=== PATIENT | female | born 1970 | race African-American/Black ===

== ENCOUNTER → 2019-11-04 | Day surgery (SDC) | payer MEDICARE, OTHER ==
[2019-11-01 11:36] LABS: BASOPHILS # (AUTO) 0.1 (0.0-0.1); BASOPHILS % 0.6 % (0.0-1.0); EOSINOPHILS # (AUTO) 0.1 (0.0-0.4); EOSINOPHILS % 0.8 % (0.0-6.0); HEMATOCRIT 36.3 % (34.2-44.1); HEMOGLOBIN 11.3 g/dL (12.0-16.0); LYMPHOCYTES # (AUTO) 2.6 (1.0-3.2); LYMPHOCYTES % 26.9 % (18.0-39.1); MEAN CORPUSCULAR HEMOGLOBIN 28.7 pg (28-32); MEAN CORPUSCULAR HGB CONC 31.1 g/dL (31-35); MEAN CORPUSCULAR VOLUME 92.1 fL (81-99); MONOCYTES # (AUTO) 0.6 (0.2-0.8); MONOCYTES % 5.8 % (4.4-11.3); NEUTROPHILS # (AUTO) 6.2 (2.1-6.9); NEUTROPHILS % 65.6 % (38.7-80.0); PLATELET COUNT 271 x10e3/uL (140-360); RED BLOOD COUNT 3.94 x10e6/uL (3.6-5.1); RED CELL DISTRIBUTION WIDTH 16.4 % (11.7-14.4)
[~2019-11-04] MED LIST: ATORVASTATIN CA10 MG PO; BENADRYL25 M1 PO; BREO ELLIPTA 11 EACH INH; CETIRIZINE HCL10 MG PEG; CLOPIDOGREL75 MG PO; DICYCLOMINE HCL10 MG PO; FENTANYL CITRATE/PF 100MCG/2 ML INJ ONE; LUNESTA3 MG PO; MIDAZOLAM HCL 2 MG/2 ML VIAL ONE; MONTELUKAST SOD10 MG PO; NAPROXEN250 MG PO; NEXIUM40 MG PO; NORCO 7.5-3251 EACH PO; OXCARBAZEPINE600 MG PO; PROPOFOL IV EMULSION 10 MG/ML 20 ML VIAL ONE; PROVENTIL HFA6.7 GM INH; SAVELLA50 MG PO; SERTRALINE HCL50 MG PO; TIZANIDINE HCL4 MG PO; TRIAMTERENE-HCTZ1 EA PO
[2019-11-04 12:30] VITALS: BP 124/86
== END | disposition home or self-care (01) ==
LOC: OR 09:25
PROVIDERS: ATTEND Internal Medicine
DX: K58.9 Irritable bowel syndrome, unspecified (principal); D17.5 Benign lipomatous neoplasm of intra-abdominal organs; K64.0 First degree hemorrhoids; Z98.84 Bariatric surgery status; K21.9 Gastro-esophageal reflux disease without esophagitis; J45.909 Unspecified asthma, uncomplicated; I10 Essential (primary) hypertension; G89.29 Other chronic pain; F20.9 Schizophrenia, unspecified; F32.9 Major depressive disorder, single episode, unspecified; Z01.810 Encounter for preprocedural cardiovascular examination; Z01.812 Encounter for preprocedural laboratory examination; Z11.59 Encounter for screening for other viral diseases; Z79.02 Long term (current) use of antithrombotics/antiplatelets
CPT/HCPCS: 36415; 43239; 45380; 85025; 93005; J2250; J2704; J3010; U0002